=== PATIENT | male | born 1945 | race African-American/Black ===

== ENCOUNTER 2022-08-09 15:13 | Emergency (ER) | payer OTHER, BC ==
[2022-08-09 15:51] VITALS: BP 110/60; PULSE 60; RESP 17; TEMP 98.1; BMI 23.4
[2022-08-09] MEDS ORDERED: BACITRACIN 15 GM TUBE TOPICAL OINTMENT ONE (18:29)
== END 2022-08-09 18:48 | disposition home or self-care (01) ==
LOC: JER 15:13
DX: L97.519 Non-pressure chronic ulcer of other part of right foot with unspecified severity (principal)
CPT/HCPCS: 99282-25